=== PATIENT | female | born 1945 | race American Indian/Alaskan Native ===

== ENCOUNTER 2018-10-15 17:23 | Emergency (ER) | payer MEDICARE ==
[2018-10-15 18:10] VITALS: BP 119/62
[2018-10-15] MEDS ORDERED: TORADOL IM ONE (19:28)
--- NOTE | 2018-10-15 19:35 | Emergency Department Report ---
ED Back Pain/Injury HPI - General Chief Complaint: Back Pain/Injury Stated Complaint: LOWER BACK PAIN Time Seen by Provider: 10/15/18 19:27 Source: patient Limitations: No Limitations - History of Present Illness Initial Comments: pt is a 73 y/o aaf with hx of COPD who presents bilat lumbar pain states she was bending over to put on her pants and felt a pop in the left lower back, now with 5/10 acing and burning pain , pain is exacerbated by movement bending twisting reaching, pain is relieved by rest, there is no fever or chills no numbness no weakness no tingling no loss of bowel or bladder function pt remains ambulatory with steady gait. MD Complaint: back pain, back injury Onset/Timin -: hour(s) Similar Symptoms Previously: Yes Place: home Radiation: left leg Severity: moderate Severity scale (0 -10): 4 Quality: burning, aching Consistency: intermittent Improves With: none (rest ) Worsens With: movement, other (bending twisting reaching ) Context: turning/twisting, bending Associated Symptoms: denies other symptoms - Related Data Previous Rx's Medication Instructions Recorded Last Taken Type Acetaminophen [Tylenol Extra 1,000 mg PO QID PRN #30 tablet 10/15/18 Unknown Rx Strength] Cyclobenzaprine HCl [Flexeril 5 MG 5 mg PO BID PRN #20 tablet 10/15/18 Unknown Rx TAB] Menthol/Camphor [[place] 1 applicatio TP QID PRN #1 tube 10/15/18 Unknown Rx Ointment] Allergies Allergy/AdvReac Type Severity Reaction Status Date / Time No Known Allergies Allergy Unverified 10/15/18 18:05 ED Review of Systems ROS: Stated complaint: LOWER BACK PAIN Other details as noted in HPI Constitutional: denies: chills, fever Eyes: denies: eye pain, eye discharge, vision change ENT: denies: ear pain, throat pain Respiratory: denies: cough, shortness of breath, wheezing Cardiovascular: denies: chest pain, palpitations Endocrine: no symptoms reported Gastrointestinal: denies: abdominal pain, nausea, diarrhea Genitourinary: denies: urgency, dysuria, discharge Musculoskeletal: back pain, arthralgia. denies: joint swelling, myalgia Skin: denies: rash, lesions Neurological: denies: headache, weakness, paresthesias Psychiatric: denies: anxiety, depression Hematological/Lymphatic: denies: easy bleeding, easy bruising ED Past Medical Hx - Past Medical History Hx Hypertension: Yes Hx COPD: Yes Additional medical history: under active thyroid gland - Surgical History Past Surgical History?: No - Social History Smoking Status: Former Smoker Substance Use Type: None - Medications Home Medications: Home Medications Medication Instructions Recorded Confirmed Last Taken Type Acetaminophen [Tylenol Extra 1,000 mg PO QID PRN #30 tablet 10/15/18 Unknown Rx Strength] Cyclobenzaprine HCl [Flexeril 5 MG 5 mg PO BID PRN #20 tablet 10/15/18 Unknown Rx TAB] Menthol/Camphor [[place] 1 applicatio TP QID PRN #1 tube 10/15/18 Unknown Rx Ointment] ED Physical Exam - General Limitations: No Limitations General appearance: alert, in no apparent distress - Head Head exam: Present: atraumatic, normocephalic - Eye Eye exam: Present: normal appearance, PERRL, EOMI Pupils: Present: normal accommodation - ENT ENT exam: Present: normal exam, mucous membranes moist - Neck Neck exam: Present: normal inspection - Respiratory Respiratory exam: Present: normal lung sounds bilaterally. Absent: respiratory distress, wheezes, stridor, chest wall tenderness - Cardiovascular Cardiovascular Exam: Present: regular rate, normal rhythm, normal heart sounds. Absent: systolic murmur, diastolic murmur, rubs, gallop - GI/Abdominal GI/Abdominal exam: Present: soft, normal bowel sounds. Absent: tenderness, bruit, hernia - Rectal Rectal exam: Present: deferred - Extremities Exam Extremities exam: Present: normal inspection, full ROM, normal capillary refill. Absent: tenderness, pedal edema, joint swelling - Back Exam Back exam: Present: tenderness, muscle spasm, paraspinal tenderness. Absent: CVA tenderness (R), CVA tenderness (L), vertebral tenderness, rash noted - Expanded Back Exam Expanded Back exam: Absent: saddle anesthesia Back exam: Positive Straight Leg Raise: Left, Negative Straight Leg Raising: Right - Neurological Exam Neurological exam: Present: alert, oriented X3, CN II-XII intact, normal gait, reflexes normal. Absent: motor sensory deficit - Psychiatric Psychiatric exam: Present: normal affect, normal mood - Skin Skin exam: Present: warm, dry, intact, normal color. Absent: rash ED Course Vital Signs 10/15/18 18:05 Temperature 97.8 F Pulse Rate 99 H Respiratory 20 Rate Blood Pressure 119/62 O2 Sat by Pulse 89 Oximetry ED Medical Decision Making - Radiology Data Radiology results: report reviewed, image reviewed Findings [facility] [address] [place] [address] XRay Report Signed Patient: NHAN LEYVA MR#: [id number] : 1945 Acct:[id number] Age/Sex: 73 / F ADM Date: 10/15/18 Loc: ED Attending Dr: Ordering Physician: KELLEE JACOB Date of Service: 10/15/18 Procedure(s): XR spine lumbosacral 2-3V Accession Number(s): [id number] cc: KELLEE JACOB Fluoro Time In Minutes: FINAL REPORT EXAM: XR SPINE LUMBOSACRAL 2-3V HISTORY: PAIN in the low back TECHNIQUE: AP, lateral and coned-down views of the lumbar spine PRIORS: None. FINDINGS: The vertebral body heights and disc spaces are well maintained. The alignment is normal. No evidence for spondylolysis or spondylolisthesis is seen. Pedicles are intact bilaterally at all levels. The paraspinal soft tissues demonstrate moderate calcification of the aorta. Bony osteopenia is noted. IMPRESSION: No acute abnormality in the lumbar spine Transcribed By: [facility] Dictated By: ILEANA LANE MD Electronically Authenticated By: ILEANA LANE MD Signed Date/Time: 10/15/181934 - Medical Decision Making this is a low back strain , xray no fracture no soft tissue abnormality, pain is improved there no change or loss bowel or bladder function, plan dc to home with rx for tylenol, flexeril, tiger ba. He is.lm oint, pt will follow up with pcp in 2-3 days pt verbalized agreement and understanding and of same. pt is currently a/o x 3 ambulatory with steady gait. Critical care attestation.: If time is entered above; I have spent that time in minutes in the direct care of this critically ill patient, excluding procedure time. ED Disposition Clinical Impression: Low back strain Qualifiers: Encounter type: initial encounter Qualified Code(s): S39.012A - Strain of mu scle, fascia and tendon of lower back, initial encounter Disposition: TO HOME OR SELFCARE Is pt being admited?: No Does the pt Need Aspirin: No Condition: Stable Instructions: Low Back Strain (ED), Core Strengthening Exercises (GEN) Prescriptions: Acetaminophen [Tylenol Extra Strength] 1,000 mg PO QID PRN #30 tablet PRN Reason: pain Cyclobenzaprine HCl [Flexeril 5 MG TAB] 5 mg PO BID PRN #20 tablet PRN Reason: Muscle Spasm Menthol/Camphor [[place] Ointment] 1 applicatio TP QID PRN #1 tube PRN Reason: Pain , Severe (7-10) Referrals: [facility] [Outside] - 3-5 Days Forms: Work/School Release Form(ED) Time of Disposition: 20:36
[2018-10-15 20:36] LABS: Bilirubin,Urine NEG (Negative); Blood,Urine SM (Negative); Color,Urine Yellow (Yellow); Mucus,Urine FEW /HPF; Protein,Urine <15 mg/dL mg/dL (Negative); WBC,Urine < 1.0 /HPF (0.0-6.0)
[2018-10-15] MEDS ORDERED: NORCO 5/325 PO ONE (20:47)
== END 2018-10-15 21:00 | disposition home or self-care (01) ==
LOC: ED 17:23
DX: S39.012A Strain of muscle, fascia and tendon of lower back, initial encounter (principal); I10 Essential (primary) hypertension; J44.9 Chronic obstructive pulmonary disease, unspecified; Z87.891 Personal history of nicotine dependence; X50.1XXA Overexertion from prolonged static or awkward postures, initial encounter; Y93.89 Activity, other specified; Y92.009 Unspecified place in unspecified non-institutional (private) residence as the place of occurrence of the external cause; Y99.8 Other external cause status
CPT/HCPCS: 72100; 81001; 96372; 99283; J1885

== ENCOUNTER 2018-11-04 12:48 | Emergency (ER) | payer MEDICARE ==
[2018-11-04 13:30] VITALS: BP 105/58
--- NOTE | 2018-11-04 13:38 | Emergency Department Report ---
Blank Doc - Documentation Documentation: 73 yo f pmh of HTN presents with diszziness and lightheadedness and off maynor ce since yesterday she denies cp,sob admits urinary frequency and leaking labs ordered no acute distress
[2018-11-04 14:05] LABS: Bacteria,Urine 1+ /HPF (Negative); Bilirubin,Urine NEG (Negative); Blood,Urine NEG (Negative); Color,Urine Yellow (Yellow); Hyaline Casts,Urine 10 /LPF; Mucus,Urine FEW /HPF; Protein,Urine <15 mg/dL mg/dL (Negative)
[2018-11-04 14:09] LABS: Basophils # (Auto) 0.1 K/mm3 (0.0-0.1); Basophils % (Auto) 1.1 % (0.0-1.8); Eosinophils # (Auto) 0.2 K/mm3 (0.0-0.4); Eosinophils % (Auto) 3.2 % (0.0-4.3); Hematocrit 40.6 % (30.3-42.9); Hemoglobin 13.6 gm/dl (10.1-14.3); Lymphocytes # (Auto) 2.5 K/mm3 (1.2-5.4); Lymphocytes % (Auto) 37.1 % (13.4-35.0); Mean Corpuscular HGB Conc 34 % (30-34); Mean Corpuscular Volume 96 fl (79-97); Monocytes # (Auto) 0.5 K/mm3 (0.0-0.8); Monocytes % (Auto) 7.9 % (0.0-7.3); Platelet Count 234 K/mm3 (140-440); Red Blood Count 4.24 M/mm3 (3.65-5.03); Red Cell Distribution Width 13.6 % (13.2-15.2)
[2018-11-04 14:18] LABS: BUN/Creatinine Ratio 21; Blood Urea Nitrogen 21 mg/dL (7-17); Calcium 9.1 mg/dL (8.4-10.2); Hemolysis Index 10
[2018-11-04] MEDS ORDERED: ANTIVERT PO ONE (15:24)
[2018-11-04] MEDS ORDERED: NACL 0.9% 1000 ML 1,000 ML IV ONE (15:24)
--- NOTE | 2018-11-04 15:58 | Emergency Department Report ---
ED Dizziness HPI - General Chief Complaint: Dizziness Stated Complaint: LIGHT HEAD/DIZZY Time Seen by Provider: 11/04/18 13:33 Source: patient Mode of arrival: Ambulatory Limitations: No Limitations - History of Present Illness Initial Comments: 73-year-old female presents to ED with complaint of dizziness. She states she awoke yesterday morning and felt as if her head was "spinning" when she stood up. Patient states with walking she feels as if she is off balance. Patient denies headache, nausea, vomiting, fever. Patient denies numbness or weakness in extremities. Patient denies nasal congestion. Reports ear pain, worse on the left. MD Complaint: dizziness -: days(s) (2) Timing: awoke with symptoms Description: sense of movement, "room spinning", off-balance History of Same: No History of Trauma: No Severity: moderate Worsens With: movement, position Associated Symptoms: denies: confusion, diaphoresis, fever/chills, shortness of breath - Related Data Previous Rx's Medication Instructions Recorded Last Taken Type Acetaminophen [Tylenol Extra 1,000 mg PO QID PRN #30 tablet 10/15/18 Unknown Rx Strength] Cyclobenzaprine HCl [Flexeril 5 MG 5 mg PO BID PRN #20 tablet 10/15/18 Unknown Rx TAB] Menthol/Camphor [[place] 1 applicatio TP QID PRN #1 tube 10/15/18 Unknown Rx Ointment] Amoxicillin/K Clav Tab [Augmentin 1 tab PO Q12HR 10 Days #20 tab 11/04/18 Unknown Rx 875 mg] Meclizine [Antivert] 25 mg PO TID PRN #20 tablet 11/04/18 Unknown Rx Allergies Allergy/AdvReac Type Severity Reaction Status Date / Time No Known Allergies Allergy Unverified 10/15/18 18:05 ED Review of Systems ROS: Stated complaint: LIGHT HEAD/DIZZY Other details as noted in HPI Comment: All other systems reviewed and negative Constitutional: denies: chills, fever ENT: ear pain. denies: congestion Respiratory: denies: shortness of breath Cardiovascular: denies: chest pain, palpitations Gastrointestinal: denies: nausea, vomiting Genitourinary: frequency Neurological: vertigo. denies: headache, weakness, numbness, paresthesias ED Past Medical Hx - Past Medical History Hx Hypertension: Yes Hx COPD: Yes Additional medical history: under active thyroid gland - Social History Smoking Status: Never Smoker Substance Use Type: None - Medications Home Medications: Home Medications Medication Instructions Recorded Confirmed Last Taken Type Acetaminophen [Tylenol Extra 1,000 mg PO QID PRN #30 tablet 10/15/18 Unknown Rx Strength] Cyclobenzaprine HCl [Flexeril 5 MG 5 mg PO BID PRN #20 tablet 10/15/18 Unknown Rx TAB] Menthol/Camphor [[place] 1 applicatio TP QID PRN #1 tube 10/15/18 Unknown Rx Ointment] Amoxicillin/K Clav Tab [Augmentin 1 tab PO Q12HR 10 Days #20 tab 11/04/18 Unknown Rx 875 mg] Meclizine [Antivert] 25 mg PO TID PRN #20 tablet 11/04/18 Unknown Rx ED Physical Exam - General Limitations: No Limitations General appearance: alert, in no apparent distress, other (nontoxic-appearing, sitting up on side of stretcher doing a crossword puzzle) - Head Head exam: Present: atraumatic, normocephalic - Eye Eye exam: Present: normal appearance - ENT ENT exam: Present: mucous membranes moist, TM's normal bilaterally, normal external ear exam - Neck Neck exam: Present: normal inspection - Respiratory Respiratory exam: Present: normal lung sounds bilaterally. Absent: respiratory distress - Cardiovascular Cardiovascular Exam: Present: regular rate, normal rhythm - GI/Abdominal GI/Abdominal exam: Present: soft. Absent: distended, tenderness - Extremities Exam Extremities exam: Present: normal inspection - Neurological Exam Neurological exam: Present: alert, oriented X3, CN II-XII intact, normal gait. Absent: motor sensory deficit - Psychiatric Psychiatric exam: Present: normal affect, normal mood - Skin Skin exam: Present: warm, dry, intact, normal color ED Course Vital Signs 11/04/18 11/04/18 13:29 15:30 Temperature 97.9 F Pulse Rate 67 Respiratory 16 20 Rate Blood Pressure 105/58 [Left] O2 Sat by Pulse 95 Oximetry - Reevaluation(s) Reevaluation #1: 11/04/18 17:49 Pt states is feeling much better. States feels as if the medication helped. Pt was ambulated around the ER by RN. Pt not ataxic, did not feel dizzy. Pt ambulated well. CT shows mastoid effusions. This is the likely cause since patient's symptoms resolved with meclizine. CT was negative for any acute findings of stroke. Will d/c home with prescription for antibiotics and meclizine and follow-up information for ENT. ED Medical Decision Making - Lab Data Result diagrams: 11/04/18 13:44 11/04/18 13:44 - Radiology Data Radiology results: report reviewed, image reviewed - Differential Diagnosis CVA, sinus infection, BPV Critical care attestation.: If time is entered above; I have spent that time in minutes in the direct care of this critically ill patient, excluding procedure time. ED Disposition Clinical Impression: Unspecified mastoiditis, unspecified ear, Vertigo Disposition: TO HOME OR SELFCARE Is pt being admited?: No Condition: Stable Instructions: Benign Paroxysmal Positional Vertigo (ED) Prescriptions: Amoxicillin/K Clav Tab [Augmentin 875 mg] 1 tab PO Q12HR 10 Days #20 tab Meclizine [Antivert] 25 mg PO TID PRN #20 tablet PRN Reason: Vertigo Referrals: MARLON GILLIAM MD, PHD [Primary Care Provider] - 3-5 Days ILEANA DUQUE MD [Staff Physician] - 3-5 Days TANNER ROMEO MD [Staff Physician] - 3-5 Days GERMAINE ZAMUDIO MD [Staff Physician] - 3-5 Days Time of Disposition: 17:58
--- NOTE | 2018-11-04 17:30 | Cat Scan Report ---
FINAL REPORT EXAM: CT HEAD/BRAIN WO CON HISTORY: dizziness TECHNIQUE: CT of the head was performed without intravenous contrast. PRIORS: None. FINDINGS: The ventricles are normal in shape and position. The ventricles are nondilated. No intracranial hemo rrhage, mass, mass effect, midline shift or evidence of acute ischemic infarct. The basilar cisterns are patent. Mild areas of low-attenuation are seen in the periventricular and subcortical white matte r. The paranasal sinuses are clear. The extracranial soft tissues demonstrate no abnormality. The calvar ium is intact. The orbits are intact. There are bilateral mastoid effusions. IMPRESSION: 1. No acute intracranial abnormality. 2. Mild findings of chronic microvascular ischemic disease. 3. Bilateral mastoid effusions.
== END 2018-11-04 18:10 | disposition home or self-care (01) ==
LOC: ED 12:48
DX: H70.90 Unspecified mastoiditis, unspecified ear (principal); R42 Dizziness and giddiness
CPT/HCPCS: 36415; 70450; 80048; 81001; 82140; 85025; 96360; 99284; J7030

== ENCOUNTER 2022-02-28 11:16 | Emergency (ER) | payer MEDICARE ==
[2022-03-01] MEDS ORDERED: OXYTOCIN DRIP 30,000 MILLIUNITS/500 ML BAG IV ONE (20:55)
== END 2022-02-28 14:45 ==
LOC: ED 11:16
DX: M79.89 Other specified soft tissue disorders (principal); Z53.21 Procedure and treatment not carried out due to patient leaving prior to being seen by health care provider
CPT/HCPCS: J2590